=== PATIENT | male | born 1970 | race Caucasian/White ===

== ENCOUNTER 2024-07-22 02:26 | Emergency (ER) | payer OTHER ==
[~2024-07-22] VITALS: Ht 170.2 cm; Wt 74.1 kg
[2024-07-22] MEDS ORDERED: LACTATED RINGER'S 1,000 ML IV ONE (02:30)
[2024-07-22] MEDS ORDERED: ondansetron HCL 4 MG/2 ML VIAL IV ONE (02:30)
[2024-07-22] MEDS ORDERED: DIPHTH,PERTUSS(ACELL),TET VAC 0.5 ML SYRINGE IM ONE (02:30)
[2024-07-22] MEDS ORDERED: HYDROmorphone HCL 1 MG/ML SYR IV PRN (02:30)
[2024-07-22 02:39] LABS: BASOPHILS 0.3 % (0.2-1.2); EOSINOPHILS 0.4 % (0.8-7.0); HEMATOCRIT 38.7 % (40.1-51.0); HEMOGLOBIN 13.5 g/dL (13.7-17.5); LYMPHOCYTES 9.6 % (21.8-53.1); MCHC 34.9 g/dL (32.3-36.5); MCV 91.7 fL (79.0-92.2); MONOCYTES 6.7 % (5.3-12.2); NEUTROPHILS 82.2 % (34.0-67.9); PLATELET COUNT 252 K/uL (163-337); RBC 4.22 M/uL (4.63-6.08)
[2024-07-22 03:02] LABS: ALBUMIN 3.8 g/dL (3.4-5.0); ALBUMIN/GLOBULIN RATIO 1.03 (1.1-2.4); ANION GAP 17.1 (7-21); BILIRUBIN, TOTAL 0.4 mg/dL (0.2-1.0); BUN/CREATININE RATIO 11.11 (6.0-28.6); CALCIUM 8.7 mg/dL (8.5-10.1); CREATININE, SERUM 0.9 mg/dL (0.70-1.30); POTASSIUM 4.1 mmol/L (3.5-5.1); PROTEIN, TOTAL 7.5 g/dL (6.4-8.2)
[2024-07-22 03:18] LABS: ABO O; ANTIBODY SCREEN NEGATIVE; RH POSITIVE
[2024-07-22 03:57] LABS: BILIRUBIN, URINE NEGATIVE (negative); BLOOD/HGB, URINE MODERATE (Negative); KETONE, URINE NEGATIVE (Negative); LEUK ESTERASE, URINE NEGATIVE (negative); NITRITE, URINE NEGATIVE (negative); PH, URINE 5.5 (5-7)
[2024-07-22] MEDS ORDERED: fentaNYL citrate 100 MCG/2 ML VIAL IV ONE (04:00)
[2024-07-22 04:12] LABS: AMPHETAMINES, URINE NEGATIVE (NEGATIVE); BARBITURATES, URINE NEGATIVE (NEGATIVE); BENZODIAZEPINE, URINE NEGATIVE (NEGATIVE); BUPRENORPHINE, URINE NEGATIVE (NEGATIVE); CANNABINOID, URINE NEGATIVE (NEGATIVE); COCAINE, URINE NEGATIVE (NEGATIVE); ECSTASY, URINE NEGATIVE (NEGATIVE); FENTANYL, URINE NEGATIVE (NEGATIVE); METHADONE, URINE NEGATIVE (NEGATIVE); OPIATES, URINE POSITIVE (NEGATIVE); OXYCODONE, URINE NEGATIVE (NEGATIVE); PHENCYCLIDINE, URINE NEGATIVE (NEGATIVE)
[2024-07-22] MEDS ORDERED: CEFTRIAXONE SODIUM 2 GM in SODIUM CHLORIDE 0.9% 100 ML IV ONE (04:15)
[2024-07-22] MEDS ORDERED: LIDOCAINE 2% VISCOUS 6 ML SYR TOP ONE (04:15)
[2024-07-22] MEDS ORDERED: TRANEXAMIC ACID IN NACL,ISO-OS 1,000 MG/100 ML PIGGYBACK IV ONE (04:15)
[2024-07-22] MEDS ORDERED: SODIUM CHLORIDE 0.9% 1,000 ML IV SCH (04:15)
[2024-07-22 04:16] LABS: BACTERIA, URINE NONE SEEN /hpf (negative); CASTS, URINE HYALINE 1+ \\lpf; COLLECTION TYPE, URINE CLEAN CATCH; CRYSTALS, URINE NONE SEEN (0-1+); EPITHELIAL CELLS, URINE NONE SEEN /lpf (0-1+); REFLEX CULTURE, URINE No (No)
[2024-07-22] MEDS ORDERED: fentaNYL citrate 100 MCG/2 ML VIAL IV PRN (04:30)
[2024-07-22 04:52] LABS: BASOPHILS 0.2 % (0.2-1.2); EOSINOPHILS 0 % (0.8-7.0); HEMATOCRIT 36.6 % (40.1-51.0); HEMOGLOBIN 12.6 g/dL (13.7-17.5); LYMPHOCYTES 6.6 % (21.8-53.1); MCH 31.7 PG (25.7-32.2); MCHC 34.4 g/dL (32.3-36.5); MCV 92.2 fL (79.0-92.2); MONOCYTES 5.5 % (5.3-12.2); NEUTROPHILS 87.2 % (34.0-67.9); PLATELET COUNT 243 K/uL (163-337); RBC 3.97 M/uL (4.63-6.08)
[2024-07-22 07:12] VITALS: BP 144/90
== END 2024-07-22 07:12 | disposition short-term general hospital (02) ==
LOC: ED 02:26 → EDBD 02:27 → ED 07:12
PROVIDERS: Family Medicine
DX: S27.0XXA Traumatic pneumothorax, initial encounter (principal); S22.42XA Multiple fractures of ribs, left side, initial encounter for closed fracture; S42.002A Fracture of unspecified part of left clavicle, initial encounter for closed fracture; S36.039A Unspecified laceration of spleen, initial encounter; S37.012A Minor contusion of left kidney, initial encounter; V09.9XXA Pedestrian injured in unspecified transport accident, initial encounter
CPT/HCPCS: 36415; 70450; 71260; 72125; 74177; 80053; 80307; 81001; 85025; 85060; 86850; 86900; 86901; 90471; 90715; 99285-25; A4311; G0480; J0696; J1171; J2405; J3010; J7030; J7121; Q9967